=== PATIENT | male | born 1960 | race Caucasian/White ===

== ENCOUNTER 2022-11-14 12:30 | Emergency (ER) | payer OTHER, SELFPAY ==
[2022-11-14 12:35] VITALS: BP 182/112; PULSE 75; RESP 20; TEMP 36.8; O2SAT 95; BMI 34.7
--- NOTE | 2022-11-14 12:46 | XR_ITS ---
[facility] [place] [id number] Patient Name: LORRAINE SOTELO MRN: [id number] date: 1960 Sex: M Assigned Patient Location: ER Current Patient Location: ER Accession/Order Number: [id number] Exam Date: 11/14/2022 13:03 Report Date: 11/14/2022 13:31 At the request of: FAROOQ POWER Procedure: XR finger LT min 2V STUDY: XR finger LT min 2V, [id number] HISTORY: left thumb COMPARISON: None FINDINGS/IMPRESSION: Severely comminuted and moderately displaced fracture of the distal aspect of the first distal phalanx. There are several punctate radiopaque bodies within the soft tissues which could represent bone fragments versus micrometallic fragments. No intra-articular fracture extension. No dislocation other acute osseous abnormality demonstrated. Electronically authenticated by: ANGELA HARVEY Date: 11/14/2022 13:31
[2022-11-14] MEDS: ADACEL DIPH,PERTUSS(ACELL),TET VAC/PF 0.5 ML ADULT SYRINGE IM (13:12)
[2022-11-14] MEDS: BUPIVACAINE HCL 0.5% PF 50 MG/10 ML VIAL 5 ML INJ (13:35)
[2022-11-14] MEDS: LIDOCAINE HCL 1% PF 20 MG/2 ML VIAL 5 ML INJ (13:35)
--- NOTE | 2022-11-14 14:50 | ED_ITS ---
Documented by User: PARTHA Seymour 11/14/22 14:55 HPI - Wound/Laceration General Chief Complaint: Wound/Laceration Stated Complaint: LT THUMB CUT Time Seen by Provider: 11/14/22 12:46 Source: patient Mode of arrival: walk-in Limitations: no limitations History of Present Illness HPI narrative: patient is a 62-year-old male who is right-hand dominant presents to the emergency department for laceration to the left thumb. Patient states he cut his thumb on a grinder tender. Unknown last tetanus. Bleeding is well-controlled at this time. He had no other associated injuries. Related Data Previous Rx's Medication Instructions Recorded cephalexin 500 mg capsule 500 mg PO Q8H 10 days #30 caps 11/14/22 hydrocodone 5 mg-acetaminophen 325 1 tab PO Q6H PRN pain #12 tabs 11/14/22 mg tablet Allergies Allergy/AdvReac Type Severity Reaction Status Date / Time Penicillins Allergy Severe Hives Verified 11/14/22 12:35 Review of Systems ROS Constitutional Denies: fever or chills Ears, nose, mouth, and throat Denies: throat pain Respiratory Denies: shortness of breath or cough Gastrointestinal Denies: nausea or vomiting Musculoskeletal Denies: back pain Integumentary/Breast Denies: rash Exam Constitutional Vital Signs, click to edit/add: Last Vital Signs Temp 98.2 F 11/14/22 12:35 Pulse 75 11/14/22 12:35 Resp 20 11/14/22 12:35 BP 182/112 H 11/14/22 12:35 Pulse Ox 95 11/14/22 12:35 O2 Del Method Room Air 11/14/22 12:35 Course Vital Signs Vital signs: Vital Signs Temperature 98.2 F 11/14/22 12:35 Pulse Rate 75 11/14/22 12:35 Respiratory Rate 20 11/14/22 12:35 Blood Pressure 182/112 H 11/14/22 12:35 Pulse Oximetry 95 11/14/22 12:35 Oxygen Delivery Method Room Air 11/14/22 12:35 Temperature 98.2 F 11/14/22 12:35 Pulse Rate 75 11/14/22 12:35 Respiratory Rate 20 11/14/22 12:35 Blood Pressure 182/112 H 11/14/22 12:35 Pulse Oximetry 95 11/14/22 12:35 Oxygen Delivery Method Room Air 11/14/22 12:35 MDM - Wound/Laceration MDM Narrative Medical decision making narrative: initial physical exam was performed by Dr. hayden. Please see his documentation. x- ray show the patient has evidence of fractures to the distal phalanx with suspected foreign body. Multiple foreign bodies were removed on cleaning the wound, including black fibrous tissue consistent with lawn shavings that he was grinding. x-ray findings were discussed with Dr. Sweeney for orthopedics (8100) due to the open fracture of the left thumb, he will see the patient for follow-up next week in the office. patient was started on Keflex, [place] for pain. Wound care instructions were given for home. return to the Emergency Room if symptoms change or worsen Laceration was repaired without difficulty. Laceration repair: Done under sterile conditions. The use of Shur-Clens prep the area. digital block with lidocaine and Marcaine was performed by Dr. hayden, approximately 5 cc. The wound was irrigated copiously with normal saline. The wound was explored there was no evidence of foreign material. The laceration was approximated with 4-0 nylon. 7 simple interrupted sutures were placed. Patient tolerated the procedure well. The patient was neurovascularly intact post. the patient had bacitracin applied to the laceration and a dry sterile dressing was place. The patient will need to follow-up in the next 7-10 days for removal Medical Records Attestation: I reviewed the patient's medical records. Discharge Plan Discharge Chief Complaint: Wound/Laceration Clinical Impression: Open fracture of distal phalanx of left thumb, Laceration of left thumb Patient Disposition: Home, Self-Care Time of Disposition Decision: 14:40 Condition: Good Mode of Transportation: Private Vehicle Prescriptions / Home Meds: New hydrocodone-acetaminophen 5-325 mg tablet 1 tab PO Q6H PRN (Reason: pain) Qty: 12 0RF Rx Instructions: DX: M79.462 cephalexin 500 mg capsule 500 mg PO Q8H 10 Days Qty: 30 0RF Instructions: Finger Fracture (ED), Finger Laceration (ED) Additional Instructions: Sutures removed in 7-10 days with orthopedics; you have an appointment with Dr. Sweeney on Nov 19 at 9am at the specialty clinic (tel [phone] and ask for specialty clinic Stand Alone Forms: Portal Instructions Referrals: Adrian Garrison DO [Primary Care Provider] - 1 week Discharge Date/Time: 11/14/22 14:48 Documented by User: Jeff Hayden MD 11/14/22 19:37 HPI - Wound/Laceration General Chief Complaint: Wound/Laceration Stated Complaint: LT THUMB CUT Time Seen by Provider: 11/14/22 12:46 History of Present Illness HPI narrative: patient is a 62-year-old male who is right-hand dominant presents to the emergency department for laceration to the left thumb. Patient states he cut his thumb on a grinder tender. Unknown last tetanus. Bleeding is well-controlled at this time. He had no other associated injuries. 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 Patient states that he was fixing something in his shop, he did explain the process to me what he is trying to fix. Somehow the object that he was trying to fix stepped up inside mechanical machine, and his left thumb Inside as well and have been cut by a grinder tender. Patient's right-hand dominant. Patient is a diabetic. Patient has laceration through the left thumbnail, and the distal tuft of the left thumb as well. Patient has a laceration oblique across his fingernail, patient has a V-shaped laceration to the top of the distal left thumb, fat pad, total laceration is 6 cm stellate. All systems are negative except as noted/marked. All systems reviewed and otherwise negative. . Nurses note and vital signs reviewed and patient is not hypoxic. General: The patient appears well and in no apparent distress. Patient is resting comfortably on cart. Patient is not toxic, lethargic, or listless Skin: Warm, dry, no pallor noted. There is no rash noted. No petechiae, purpura.Patient has stellate 6 cm laceration to left thumb. Patient has a oblique 2 cm laceration across his fingernail, distal part is the ulnar aspect, proximal part is at the base of the radial aspect of the nail, oblique in nature. Patient has a V-shaped laceration to the tuft, volar aspect of the left distal thumb, 4 cm in total, V-shaped, 2 cm to each side, stellate and approximately 0.5-1 cm deep, No obvious bony exposure.. Head: Normocephalic, atraumatic Eye: Normal conjunctiva, no drainage, EOMI. PERRL Ears, Nose, Mouth, and Throat: oral mucosa is moist. Nares patent. Mouth without vesicles. Cardiovascular: Regular Rate and Rhythm, Mild systolic murmur; NO gallop, rub Respiratory: Patient is in no distress, no accessory muscle use, lungs are clear to auscultation, no wheezing, rales or rhonchi Musculoskeletal: Patient has full range of motion of all of the extremities Except to left thumb. Patient does have superficial and deep flexor tendons intact to left thumb. Please see skin assessment. No active bleeding, no pulsatile bleeding. Patient does have sensation to the distal tip of the left thumb, no motor, sensory, or focal neurological deficits Neurological: A&O x3, normal speech Psychiatric: Cooperative Related Data Previous Rx's Medication Instructions Recorded cephalexin 500 mg capsule 500 mg PO Q8H 10 days #30 caps 11/14/22 hydrocodone 5 mg-acetaminophen 325 1 tab PO Q6H PRN pain #12 tabs 11/14/22 mg tablet Allergies Allergy/AdvReac Type Severity Reaction Status Date / Time Penicillins Allergy Severe Hives Verified 11/14/22 12:35 Exam Constitutional Vital Signs, click to edit/add: Last Vital Signs Temp 98.2 F 11/14/22 12:35 Pulse 75 11/14/22 12:35 Resp 20 11/14/22 12:35 BP 182/112 H 11/14/22 12:35 Pulse Ox 95 11/14/22 12:35 O2 Del Method Room Air 11/14/22 12:35 Course Vital Signs Vital signs: Vital Signs Temperature 98.2 F 11/14/22 12:35 Pulse Rate 75 11/14/22 12:35 Respiratory Rate 20 11/14/22 12:35 Blood Pressure 182/112 H 11/14/22 12:35 Pulse Oximetry 95 11/14/22 12:35 Oxygen Delivery Method Room Air 11/14/22 12:35 Temperature 98.2 F 11/14/22 12:35 Pulse Rate 75 11/14/22 12:35 Respiratory Rate 20 11/14/22 12:35 Blood Pressure 182/112 H 11/14/22 12:35 Pulse Oximetry 95 11/14/22 12:35 Oxygen Delivery Method Room Air 11/14/22 12:35 MDM - Wound/Laceration MDM Narrative Medical decision making narrative: initial physical exam was performed by Dr. hayden. Please see his documentation. x- ray show the patient has evidence of fractures to the distal phalanx with suspected foreign body. Multiple foreign bodies were removed on cleaning the wound, including black fibrous tissue consistent with lawn shavings that he was grinding. x-ray findings were discussed with Dr. Sweeney for orthopedics (8222) due to the open fracture of the left thumb, he will see the patient for follow-up next week in the office. patient was started on Keflex, [place] for pain. Wound care instructions were given for home. return to the Emergency Room if symptoms change or worsen 6 cm left thumb laceration was repaired without difficulty. Laceration repair: Done under sterile conditions. The use of Shur-Clens prep the area. digital block with lidocaine and Marcaine was performed by Dr. hayden, approximately 6 cc. The ratio of Marcaine a lidocaine was 5-1. The wound was irrigated copiously with normal saline. The wound was explored there was no evidence of foreign material. The laceration was approximated with 4-0 nylon. 7 simple interrupted sutures were placed. Patient had good approximation of his nail as well along with the fat pad/tuft of the left thumb. Patient tolerated the procedure well. The patient was neurovascularly intact post. the patient had bacitracin applied to the laceration and a dry sterile dressing was place. The patient will need to follow-up in the next 7-10 days for removal Discharge Plan Discharge Chief Complaint: Wound/Laceration Clinical Impression: Open fracture of distal phalanx of left thumb, Laceration of left thumb Patient Disposition: Home, Self-Care Time of Disposition Decision: 14:40 Condition: Good Mode of Transportation: Private Vehicle Prescriptions / Home Meds: New hydrocodone-acetaminophen 5-325 mg tablet 1 tab PO Q6H PRN (Reason: pain) Qty: 12 0RF Rx Instructions: DX: M79.462 cephalexin 500 mg capsule 500 mg PO Q8H 10 Days Qty: 30 0RF Instructions: Finger Fracture (ED), Finger Laceration (ED) Additional Instructions: Sutures removed in 7-10 days with orthopedics; you have an appointment with Dr. Sweeney on Nov 19 at 9am at the specialty clinic (tel [phone] and ask for specialty clinic Stand Alone Forms: Portal Instructions Referrals: Adrian Garrison DO [Primary Care Provider] - 1 week Discharge Date/Time: 11/14/22 14:48
== END 2022-11-14 14:48 | disposition home or self-care (01) ==
PROVIDERS: Emergency Provider Emergency Medicine; PCP Internal Medicine
DX: S62.522B Displaced fracture of distal phalanx of left thumb, initial encounter for open fracture (principal); Z23 Encounter for immunization; W29.8XXA Contact with other powered hand tools and household machinery, initial encounter
CPT/HCPCS: 12002; 73140; 90471; 90715; 96374; 99284

== ENCOUNTER 2022-11-26 09:45 | Outpatient (OUT) | payer OTHER, SELFPAY ==
--- NOTE | 2022-11-26 09:53 | XR_ITS ---
The [address] [address] Patient Name: LORRAINE SOTELO MRN: [id number] date: 1960 Sex: M Assigned Patient Location: RAD Current Patient Location: RAD Accession/Order Number: [id number] Exam Date: 11/26/2022 10:00 Report Date: 11/26/2022 11:37 At the request of: JOSE DELEON Procedure: XR finger LT min 2V PROCEDURE: XR finger LT min 2V HISTORY: Open Nondisplaced Fracture Of Left Thumb S62.525B COMPARISON: XR left thumb 11/14/2022 FINDINGS: BONES:Markedly comminuted and moderately displaced fragmentation of the distal half of the first distal phalanx. SOFT TISSUES:Prominent soft tissue swelling of the thumb. Multiple tiny punctate radiopaque foreign bodies within the soft tissues. EFFUSION:None visible. OTHER: Negative. XR/XR finger LT min 2V IMPRESSION: 1. Stable comminuted and moderately displaced fracture fragments of the distal phalanx of the left thumb; not significant changed. Electronically authenticated by: JOSE ELIAS Date: 11/26/2022 11:37
== END 2022-11-26 09:46 | disposition home or self-care (01) ==
LOC: RAD 09:47
PROVIDERS: PCP Internal Medicine; Visit Provider Orthopaedic Surgery
DX: S62.525B Nondisplaced fracture of distal phalanx of left thumb, initial encounter for open fracture (principal)
CPT/HCPCS: 73140

== ENCOUNTER 2024-04-06 08:47 | Outpatient (OUT) | payer OTHER, SELFPAY ==
[2024-04-06 09:21] LABS: Basophils Absolute Auto 0.1 10^3/uL (0.0-0.1); Basophils Percent Auto 1.1 % (0.2-2.0); Eosinophils Absolute Auto 0.3 10^3/uL (0.0-0.7); Eosinophils Percent Auto 6.3 % (0.9-7.0); Hematocrit 49.7 % (42.0-54.0); Hemoglobin 16.2 g/dL (14.0-18.0); Immature Granulocytes Abs Auto 0.03 10^3/uL (0.00-0.03); Immature Granulocytes Pct Auto 0.7 % (0.0-0.5); Lymphocytes Absolute Auto 1.3 10^3/uL (1.2-3.8); Lymphocytes Percent Auto 28.2 % (20.5-60.0); Mean Corpuscular HGB Conc 32.6 g/dL (29.9-35.2); Mean Corpuscular Hemoglobin 29.5 pg (25.9-34.0); Mean Corpuscular Volume 90.4 fL (80.0-94.0); Mean Platelet Volume 10.4 fL (9.5-13.5); Monocytes Absolute Auto 0.5 10^3/uL (0.3-0.8); Monocytes Percent Auto 10.1 % (1.7-12.0); Neutrophils Absolute Auto 2.4 10^3/uL (1.4-6.5); Neutrophils Percent Auto 53.6 % (43.0-75.0); Platelet Count 225 10^3/uL (150-450); Red Cell Distribution Width 12.3 % (11.0-15.0); White Blood Count 4.5 10^3/uL (4.0-11.0)
[2024-04-06 09:29] LABS: Estimated Average Glucose 260 mg/dL; Glycohemoglobin A1C 10.7 % (4.5-6.2)
[2024-04-06 09:39] LABS: Creatinine Urine Random 117.45 mg/dL (20.00-300.00); Microalbum Creatinine Ratio Ur 42.5 mg/g (0.0-29.9)
[2024-04-06 09:43] LABS: Alanine Aminotransferase 16 U/L (16-63); Albumin Globulin Ratio 1.2; Albumin Level 3.9 g/dL (3.4-5.0); Alkaline Phosphatase 131 U/L (46-116); Anion Gap 12.3; Aspartate Amino Transferase 6 U/L (15-37); BUN Creatinine Ratio 12.4; Bilirubin Total 0.6 mg/dL (0.2-1.0); Calcium 9.5 mg/dL (8.5-10.1); Carbon Dioxide 30.4 mmol/L (21.0-32.0); Chloride 101 mmol/L (98-107); Cholesterol 180 mg/dL (<=200); Estimated GFR (African America >60 (>=60 mL/min/1.73m^2); Estimated GFR (Non-African Ame >60 (>=60 mL/min/1.73m^2); Globulin 3.2 g/dL; Glucose 274 mg/dL (74-106); HDL Cholesterol 36 mg/dL (40-60); Potassium 4.7 mmol/L (3.5-5.1); Sodium 139 mmol/L (136-145); Total Protein 7.1 g/dL (6.4-8.2); Triglycerides 200 mg/dL (<=150)
[2024-04-06 10:28] LABS: Prostate Specific Antigen Scrn 1.04 ng/mL (<=4.00)
== END 2024-04-06 08:48 | disposition home or self-care (01) ==
LOC: LAB 08:50
PROVIDERS: PCP Internal Medicine; Visit Provider Internal Medicine
DX: E11.65 Type 2 diabetes mellitus with hyperglycemia (principal); E78.00 Pure hypercholesterolemia, unspecified; I10 Essential (primary) hypertension; Z12.5 Encounter for screening for malignant neoplasm of prostate
CPT/HCPCS: 36415; 80053; 80061; 82043; 82570; 83036; 85025; G0103